=== PATIENT | female | born 1940 | race Caucasian/White ===

== ENCOUNTER 2017-05-17 22:26 | Emergency (ER) | payer MEDICARE, BC ==
[~2017-05-17] VITALS: Ht 162.6 cm; Wt 81.0 kg
[2017-05-17 22:33] VITALS: BP 203/97; PULSE 97; RESP 20; TEMP 98.6; O2SAT 97
[2017-05-17] MEDS ORDERED: OMEP20TA93 PO (23:01)
[2017-05-17] MEDS ORDERED: FLUV100T PO (23:01)
[2017-05-17] MEDS ORDERED: ROSU1TAB6 PO (23:01)
[2017-05-17] MEDS ORDERED: CLON0.5T PO (23:01)
[2017-05-17] MEDS ORDERED: LOSA100T PO (23:01)
[2017-05-17] MEDS ORDERED: ASPI81CH6 CHEW (23:01)
[2017-05-17] MEDS ORDERED: HYDR25TA5 PO (23:01)
[2017-05-17] MEDS ORDERED: METO1TAB42 PO (23:01)
[2017-05-17] MEDS ORDERED: DICY10CA12 PO (23:01)
[2017-05-17 23:37] VITALS: BP 187/81; PULSE 68; RESP 16; O2SAT 95
--- NOTE | 2017-05-17 23:41 | RADRPT ---
EXAM DATE/TIME: 05/17/2017 23:19 [place] COMPARISON: No previous studies available for comparison. INDICATIONS : Right foot pain post fall today MEDICAL HISTORY : None. SURGICAL HISTORY : Bunion removal. Hammertoe repair ENCOUNTER: Initial ACUITY: 1 day PAIN SCORE: 7/10 LOCATION: Right dorsal surface of foot FINDINGS: 3 views of the right foot demonstrate no acute fracture or dislocation. There is hardware in the firs t digit proximal phalanx, distal first metatarsal, and distal third metatarsal. No hardware failure o r loosening is appreciated. Lisfranc joint appears intact. 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 No s oft tissue abnormality or concerning radiopaque foreign body is identified. CONCLUSION: No acute right foot abnormality is identified. There are degenerative changes and postsurgical hardwa re, as above. Jg Dumont MD on May 17, 2017 at 23:38 Board Certified Radiologist. This report was verified electronically.
[2017-05-17] MEDS ORDERED: IBUP-232 PO (23:59)
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
[2017-05-18 00:22] VITALS: BP 172/68
== END 2017-05-18 00:23 | disposition home or self-care (01) ==
LOC: PHED 22:26
DX: S93.601A Unspecified sprain of right foot, initial encounter (principal); I10 Essential (primary) hypertension; E78.00 Pure hypercholesterolemia, unspecified; K21.9 Gastro-esophageal reflux disease without esophagitis; F41.9 Anxiety disorder, unspecified; V18.0XXA Pedal cycle driver injured in noncollision transport accident in nontraffic accident, initial encounter; Y93.55 Activity, bike riding; Z98.890 Other specified postprocedural states; Z88.0 Allergy status to penicillin; Z88.2 Allergy status to sulfonamides; Z79.82 Long term (current) use of aspirin; Z79.899 Other long term (current) drug therapy
CPT/HCPCS: 73630; 99283; L3260